=== PATIENT | male | born 2000 | race Caucasian/White ===

== ENCOUNTER 2019-01-16 01:23 | Emergency (ER) | payer SELFPAY ==
[2019-01-16] MEDS ORDERED: NS 0.9% 1000 ML** 1,000 ML IV ONE (02:14)
[2019-01-16] MEDS ORDERED: Ketorolac INJ* 30 MG/ML 1 ML VIAL IV PUSH ONE (02:15)
[2019-01-16 03:42] LABS: ABS Monocytes 0.7 10^3/ul (0-0.8); ABS Neutrophils 10.3 10^3/ul (1.5-7.7); Eosinophil % 0.3 %; Hematocrit 40 % (42-52); Hemoglobin 12.8 g/dL (14.0-18.0); Mean Corpuscular HGB Conc 32 g/dL (31-36); Mean Corpuscular Hemoglobin 26 pg (27-31); Mean Corpuscular Volume 82 fL (80-94); Mean Platelet Volume 9.3 fL (7.4-10.4); Nucleated Red Blood Cells % 0.1; Platelet Count 195 10^3/uL (150-450); Red Blood Count 4.84 10^6 /uL (4.18-5.48); Red Cell Distribution Width 14 % (10.5-15)
[2019-01-16 03:50] LABS: ALT 10 U/L (7-52); AST 14 U/L (13-39); Albumin 4.2 g/dL (3.2-5.2); Albumin/Globulin Ratio 1.5 (1-3); Alkaline Phosphatase 80 U/L (34-104); Anion Gap 4 mmol/L (2-11); Blood Urea Nitrogen 11 mg/dL (6-24); CO2 Carbon Dioxide 28 mmol/L (22-32); Calcium 9.2 mg/dL (8.6-10.3); Chloride 107 mmol/L (101-111); EGFR African American 128.2 (>60); Globulin 2.8 g/dL (2-4); Glucose 120 mg/dL (70-100); Sodium 139 mmol/L (135-145)
[2019-01-16 03:51] LABS: Alcohol < 10 mg/dL (<10)
[2019-01-16 04:10] LABS: Urine Appearance Cloudy; Urine Bacteria Absent (Absent); Urine Bilirubin Negative (Negative); Urine Blood Negative (Negative); Urine Color Yellow; Urine Glucose Negative (Negative); Urine Ketones Negative (Negative); Urine Nitrite Negative (Negative); Urine Protein 1+(30 mg/dL) (Negative); Urine Red Blood Cell Absent (Absent); Urine Specific Gravity 1.019 (1.010-1.030); Urine Urobilinogen Negative (Negative); Urine White Blood Cell Trace(0-5/hpf) (Absent)
[2019-01-16 04:18] LABS: Urine Benzodiazepine Screen None Detected (None Detect); Urine Opiates Screen None Detected (None Detect)
--- NOTE | 2019-01-16 04:22 | ED ---
Altered Mental Status - HPI Summary HPI Summary: The patient is a 18 year old male who is presenting to the [facility] via EMS with a chief complaint of altered mental state s/p marijuana use. Both the patient's mother and the patient dictate the story as the patient had been unresponsive in the beginning of the initial examination. The patient mother states that the patient had been smoking and had become unresponsive subsequently after substance use. Both the mother and the patient were planning on leaving for [place] today, and according to the mother she heard a "thump" in the kitchen later that day (01/15/19) presumably because the patient had fallen down. She had heard about her son (the patient) smoking marijuana through her daughter. Patient reports of hip pain immediately after the fall. The mother also notes a "Completely wiggins" appearance after the fall and prior to [facility] arrival. Symptom are aggravated by nothing. Symptoms are alleviated by nothing. The pain is rated to be 0/10 in severity currently. - History Of Current Complaint Chief Complaint: EDAltMentalStatus Stated Complaint: POSS OVERDOSE PER PT MOM Time Seen by Provider: 01/16/19 01:48 Hx Obtained From: Patient, Family/Senior Technical Writer Onset/Duration: Still Present Timing: Constant Aggravating Factor(s): Nothing Alleviating Factor(s): Nothing PMH/Surg Hx/FS Hx/Imm Hx Sensory History: Denies: Hx Deafness, Hx Hearing Aid Opthamlomology History: Denies: Hx Legally Blind EENT History: Denies: Hx Deafness - Immunization History Date of Tetanus Vaccine: unk Date of Influenza Vaccine: unk Infectious Disease History: No Infectious Disease History: Denies: Traveled Outside the [place] in Last 30 Days - Family History Known Family History: Positive: Non-Contributory Family History: FHx is reviewed and noncontributory - Social History Occupation: Student Alcohol Use: None Substance Use Type: Reports: Marijuana Substance Use Comment - Amount & Last Used: tonight Smoking Status (MU): Light Every Day Tobacco Smoker Review of Systems Constitutional: Negative Eyes: Negative ENT: Negative Cardiovascular: Negative Respiratory: Negative Gastrointestinal: Negative Genitourinary: Negative Musculoskeletal: Other - Hip pain s/p fall Skin: Negative Neurological: Negative Psychological: Other - Altered Mental State All Other Systems Reviewed And Are Negative: Yes Physical Exam - Summary Physical Exam Summary: VITAL SIGNS: Reviewed. GENERAL: Patient is a Mildly pale (MALE) who is lying comfortable in the stretcher. Patient is not in any acute respiratory distress. HEAD AND FACE: No signs of trauma. No ecchymosis, hematomas or skull depressions. No sinus tenderness. EYES: PERRLA, EOMI x 2, No injected conjunctiva, no nystagmus. EARS: Hearing grossly intact. Ear canals and tympanic membranes are within normal limits. MOUTH: Oropharynx within normal limits. NECK: Supple, trachea is midline, no adenopathy, no JVD, no carotid bruit, no c- spine tenderness, neck with full ROM CHEST: Symmetric, no tenderness at palpation LUNGS: Clear to auscultation bilaterally. No wheezing or crackles. CVS: Regular rate and rhythm, S1 and S2 present, no murmurs or gallops appreciated. ABDOMEN: Soft, non-tender. No signs of distention. No rebound no guarding, and no masses palpated. Bowel sounds are normal. EXTREMITIES: FROM in all major joints, no edema, no cyanosis or clubbing. NEURO: Alert and oriented x 3. No acute neurological deficits. Speech is normal and follows commands. SKIN: Dry and warm Triage Information Reviewed: Yes Vital Signs On Initial Exam: Initial Vitals Temp Pulse Resp BP Pulse Ox 98.5 F 94 17 137/65 99 01/16/19 01:25 01/16/19 01:25 01/16/19 01:25 01/16/19 01:25 01/16/19 01:25 Vital Signs Reviewed: Yes Diagnostics - Vital Signs Vital Signs Temp Pulse Resp BP Pulse Ox 01/16/19 02:00 80 18 97 01/16/19 01:56 83 15 123/66 97 01/16/19 01:28 98 18 98 01/16/19 01:27 89 18 137/65 98 01/16/19 01:25 98.5 F 94 17 137/65 99 - Laboratory Lab Results: Lab Results 01/16/19 01/16/19 01/16/19 Range/Units 03:01 03:01 03:35 WBC 12.0 H (3.5-10.8) 10^3/uL RBC 4.84 (4.18-5.48) 10^6 /uL Hgb 12.8 L (14.0-18.0) g/dL Hct 40 L (42-52) % MCV 82 (80-94) fL MCH 26 L (27-31) pg MCHC 32 (31-36) g/dL RDW 14 (10.5-15) % Plt Count 195 (150-450) 10^3/uL MPV 9.3 (7.4-10.4) fL Neut % (Auto) 85.9 % Lymph % (Auto) 8.0 % [place] % (Auto) 5.6 % Eos % (Auto) 0.3 % Baso % (Auto) 0.2 % Absolute Neuts (auto) 10.3 H (1.5-7.7) 10^3/ul Absolute Lymphs (auto) 1.0 (1.0-4.8) 10^3/ul Absolute Monos (auto) 0.7 (0-0.8) 10^3/ul Absolute Eos (auto) 0.0 (0-0.6) 10^3/ul Absolute Basos (auto) 0.0 (0-0.2) 10^3/ul Absolute Nucleated RBC 0.0 10^3/ul Nucleated RBC % 0.1 Sodium 139 (135-145) mmol/L Potassium 4.0 (3.5-5.0) mmol/L Chloride 107 (101-111) mmol/L Carbon Dioxide 28 (22-32) mmol/L Anion Gap 4 (2-11) mmol/L BUN 11 (6-24) mg/dL Creatinine 0.92 (0.67-1.17) mg/dL Est GFR ( Amer) 128.2 (>60) Est GFR (Non-Af Amer) 106.0 (>60) BUN/Creatinine Ratio 12.0 (8-20) Glucose 120 H (70-100) mg/dL Calcium 9.2 (8.6-10.3) mg/dL Total Bilirubin 0.50 (0.2-1.0) mg/dL AST 14 (13-39) U/L ALT 10 (7-52) U/L Alkaline Phosphatase 80 (34-104) U/L Total Protein 7.0 (6.4-8.9) g/dL Albumin 4.2 (3.2-5.2) g/dL Globulin 2.8 (2-4) g/dL Albumin/Globulin Ratio 1.5 (1-3) Urine Color Yellow Urine Appearance Cloudy Urine pH 6.0 (5-9) Ur Specific [place] 1.019 (1.010-1.030) Urine Protein 1+(30 mg/dl) A (Negative) Urine Ketones Negative (Negative) Urine Blood Negative (Negative) Urine Nitrate Negative (Negative) Urine Bilirubin Negative (Negative) Urine Urobilinogen Negative (Negative) Ur Leukocyte Esterase Negative (Negative) Urine WBC (Auto) Trace(0-5/hpf) (Absent) Urine RBC (Auto) Absent (Absent) Urine Bacteria Absent (Absent) Urine Glucose Negative (Negative) Serum Alcohol < 10 (<10) mg/dL Result Diagrams: 01/16/19 03:01 01/16/19 03:01 Lab Statement: Any lab studies that have been ordered have been reviewed, and results considered in the medical decision making process. - Radiology Pelvic X-ray Radiology Interpretation Completed By: ED Physician Summary of Radiographic Findings: The pelvic X-ray reveals, as per the ED Physician, no fracture. Altered Mental Statu Course/Dx - Course Course Of Treatment: The patient is 18 year old male who is presenting to the [facility] via ambulance with a chief complaint of an altered mental state. The patient is accompanied by his mother and she stated that the patient had bee smoking marijuana. Later in that day (01/15/19) the patient falled leading to the hip pain that the patient felt initially. In the [facility], the patient received a Brain CT and Pelvic X-ray. The mother refused to wait for imaging results (CT) and the patient will be discharge home with dx of substance abuse. - Diagnoses Provider Diagnoses: Substance abuse Discharge - Sign-Out/Discharge Documenting (check all that apply): Patient Departure - DISCHARGE HOME Patient Received Moderate/Deep Sedation with Procedure: No - Discharge Plan Condition: Stable Disposition: HOME Referrals: No Primary Care Phys,NOPCP [Primary Care Provider] - - Attestation Statements Document Initiated by Scribe: Yes Documenting Scribe: Chucho James Provider For Whom Scribe is Documenting (Include Credential): Dr. Ramya Kelly Scribviolet Attestation: Chucho Patterson, scrissaed for Dr. Ramya Kelly on 01/16/19 at 0524. Status of Scribe Document: Ready
[2019-01-16 05:41] VITALS: BP 124/68
== END 2019-01-16 05:45 | disposition home or self-care (01) ==
LOC: ED 01:23
DX: F17.210 Nicotine dependence, cigarettes, uncomplicated (principal); F19.10 Other psychoactive substance abuse, uncomplicated
CPT/HCPCS: 36415; 70450; 72170; 80053; 80307; 80320; 81003; 81015; 85025; 87086; 96361; 96374; 99283; G0480; J1885